=== PATIENT | female | born 1990 | race Caucasian/White ===

== ENCOUNTER 2024-03-17 17:42 | Inpatient (IN) | payer SELFPAY ==
[~2024-03-17] VITALS: Ht 170.2 cm; Wt 44.9 kg
[2024-03-17 17:42] VITALS: BP_SYST 123; PULSE 76; RESP 18; TEMP 97.5; O2SAT 98
[~2024-03-17 17:42] MED LIST: ETOMIDATE 20 MG/ 10 ML VIAL (AMIDATE) ONE; SUCCINYLCHOLINE CHLORIDE 20 MG/ML(QUELICIN) ONE
[2024-03-17 18:14] LABS: BASOPHILS % (AUTO) 0.1 % (0.0-2.0); EOSINOPHILS # (AUTO) 0.1 K/uL (0.0-0.4); EOSINOPHILS % (AUTO) 1.6 % (0.0-4.0); HEMATOCRIT 38.3 % (36-48); HEMOGLOBIN 13.1 g/dL (12.0-16.0); LYMPHOCYTES # (AUTO) 2.2 K/uL (1.0-5.5); MEAN CORPUSCULAR HEMOGLOBIN 29 pg (27-31); MEAN CORPUSCULAR HGB CONC 34 % (32-36); MEAN CORPUSCULAR VOLUME 84 fL (79.0-98.0); MONOCYTES # (AUTO) 0.5 K/uL (0.0-1.0); MONOCYTES % (AUTO) 9.2 % (1.7-9.3); NEUTROPHILS # (AUTO) 2.8 K/uL (1.8-7.7); NEUTROPHILS % (AUTO) 50.1 % (40.0-70.0); PLATELET COUNT (AUTO) 343 K/uL (130-430); RED BLOOD CELL COUNT(AUTO) 4.58 MIL/uL (4.2-6.2); RED CELL DISTRIBUTION WIDTH 13.7 % (9.0-15.0); WHITE BLOOD COUNT (AUTO) 5.6 K/uL (4.8-10.8)
[2024-03-17] MEDS: MORPHINE 4 MG INJ. 4 MG/ML VIAL IVP ONE (18:27)
[2024-03-17] MEDS: DIPHENHYDRAMINE INJ 50 MG/ML VIAL IVP ONE (18:27)
[2024-03-17 18:28] LABS: INR 1.1 (0.8-1.2)
[2024-03-17 18:35] LABS: ALBUMIN 3.7 g/dL (3.4-4.8); BILIRUBIN,DIRECT 0.1 mg/dL (0.0-0.3); CREATININE 0.86 mg/dL (0.55-1.30); POTASSIUM 3.9 mmol/L (3.5-5.1); TOTAL BILIRUBIN 0.6 mg/dL (0.0-1.0); TOTAL PROTEIN, SERUM 7.6 g/dL (6.4-8.3)
[2024-03-17 18:46] LABS: FIBRINOGEN 280 mg/dL (200-400)
[2024-03-17] MEDS ORDERED: [UNRECOGNIZED DRUG - OTHER] IV ONE (19:15)
[2024-03-17] MEDS: [UNRECOGNIZED DRUG - OTHER] IV ONE (19:30)
[2024-03-17] MEDS: NACL 0.9% 1,000 ML IV ONE (19:35)
[2024-03-17] MEDS: KETOROLAC TROMETHAMINE 30 MG VIAL IVP ONE (19:48)
[2024-03-17] MEDS: methylPREDNISolone SOD SUCC/PF 62.5 MG/ML VIAL IVP ONE (20:43)
[2024-03-17] MEDS ORDERED: ACETAMINOPHEN 325 MG TABLET PO PRN (20:45)
[2024-03-17] MEDS ORDERED: KETOROLAC TROMETHAMINE 15 MG VIAL IVP PRN (20:45)
[2024-03-17] MEDS: ALBUTEROL SULFATE 0.083% 2.5 MG/3 ML VIAL.NEB INH ONE (21:06)
[2024-03-17] MEDS: LORazepam 2 MG/ML VIAL IVP ONE (21:22)
[2024-03-17] MEDS: IPRATROPIUM BROM 0.5 MG/2.5 ML VIAL.NEB (ATROVENT) INH ONE (21:47)
[2024-03-17 22:00] VITALS: BP_SYST 135; PULSE 89; RESP 18; TEMP 98.5
[2024-03-17] MEDS: NACL 0.9% 1,000 ML IV SCH (22:25)
[2024-03-17] MEDS: ONDANSETRON HCL 4 MG/2 ML VIAL IVP PRN (23:21)
[2024-03-17] MEDS: MORPHINE 4 MG INJ. 4 MG/ML VIAL IVP PRN (23:22)
[2024-03-17 23:44] VITALS: O2SAT 96
[2024-03-18] VITALS (38 sets, daily range): BP systolic 94–126; PULSE 55–120; RESP 14–28; TEMP 97–99; O2SAT 98–100
[2024-03-18 03:45] LABS: BLOOD GAS BASE EXCESS -11.8 mmol/L (-3.0-3.0); BLOOD GAS HCO3 18.2 mmol/L (21.0-27.0); BLOOD GAS PCO2 59.1 mmHg (35.0-45.0); BLOOD GAS PH 7.107 (7.350-7.450); BLOOD GAS PO2 302.8 mmHg (75.0-100.0)
[2024-03-18 03:46] LABS: ABG O2 SAT% ESTIMATE 99.5 % (94.0-100.0); ALLEN'S TEST POSITIVE (P)
[2024-03-18 03:56] LABS: EOSINOPHILS % (AUTO) 0.1 % (0.0-4.0); HEMATOCRIT 43.1 % (36-48); HEMOGLOBIN 13.6 g/dL (12.0-16.0); LYMPHOCYTES # (AUTO) 0.7 K/uL (1.0-5.5); LYMPHOCYTES % (AUTO) 2.6 % (20.5-51.5); MEAN CORPUSCULAR HEMOGLOBIN 28 pg (27-31); MEAN CORPUSCULAR HGB CONC 32 % (32-36); MEAN CORPUSCULAR VOLUME 88 fL (79.0-98.0); MONOCYTES # (AUTO) 0.4 K/uL (0.0-1.0); MONOCYTES % (AUTO) 1.3 % (1.7-9.3); NEUTROPHILS # (AUTO) 27.2 K/uL (1.8-7.7); PLATELET COUNT (AUTO) 355 K/uL (130-430); RED BLOOD CELL COUNT(AUTO) 4.89 MIL/uL (4.2-6.2); WHITE BLOOD COUNT (AUTO) 28.4 K/uL (4.8-10.8)
[2024-03-18 03:58] LABS: INR 1.1 (0.8-1.2); PROTHROMBIN TIME 11.2 SECS (9.5-12.5)
[2024-03-18 04:20] LABS: ALBUMIN 3.3 g/dL (3.4-4.8); CALCIUM 7.6 mg/dL (8.4-11.0); CREATININE 1.31 mg/dL (0.55-1.30); TOTAL BILIRUBIN 0.5 mg/dL (0.0-1.0); TOTAL PROTEIN, SERUM 7.3 g/dL (6.4-8.3)
[2024-03-18] MEDS ORDERED: DEXTROSE 50% JECT 50 ML DISP.SYRIN IVP PRN (04:30)
[2024-03-18 04:46] LABS: FREE T4 (FREE THYROXINE) 0.9 ng/dl (0.8-1.5); THYROID STIMULATING HORMONE 2.87 uIu/mL (0.36-3.74)
[2024-03-18 05:43] LABS: BLOOD GAS HCO3 16.1 mmol/L (21.0-27.0); BLOOD GAS PCO2 40.6 mmHg (35.0-45.0); BLOOD GAS PH 7.216 (7.350-7.450); BLOOD GAS PO2 93.4 mmHg (75.0-100.0)
[2024-03-18 05:44] LABS: ABG O2 SAT% ESTIMATE 95.7 % (94.0-100.0); BLOOD GAS BASE EXCESS -11.1 mmol/L (-3.0-3.0)
[2024-03-18] MEDS ORDERED: COMMUNICATION ORDER XX SCH (06:15)
[2024-03-18] MEDS: SODIUM BICARBONATE 8.4% JECT 50 MEQ/50 ML SYRINGE IVP ONE (06:34)
[2024-03-18] MEDS: NS 1000 ML IV.SOLN IV ONE (06:34)
[2024-03-18] MEDS: PANTOPRAZOLE SODIUM 40 MG/VIAL (PROTONIX) IVP ONE (06:34)
[2024-03-18] MEDS: D5LR 1,000 ML IV SCH (06:35)
[2024-03-18 07:10] LABS: BILIRUBIN,URINE NEGATIVE (NEGATIVE); BLOOD, URINE 2+ (NEGATIVE); CLARITY/URINE SL CLOUDY (CLEAR); COLOR,URINE YELLOW (YELLOW); GLUCOSE,URINE 3+ (NEGATIVE); KETONES,URINE TRACE (NEGATIVE); LEUKOCYTE ESTERASE ,URINE NEGATIVE (NEGATIVE); NITRITE, URINE NEGATIVE (NEGATIVE); PROTEIN URINE 2+ (NEGATIVE)
[2024-03-18 07:23] LABS: HCG,QUAL RESULT NEGATIVE (NEGATIVE)
[2024-03-18 07:28] LABS: BACTERIA,URINE MANY /HPF (None Seen); WBC,URINE 0-3 /HPF (0-3)
[2024-03-18 07:36] LABS: BARBITURATE, URINE NEGATIVE (NEG <=200); BENZODIAZEPINE, URINE NEGATIVE (NEG <=150); CANNABINOID, URINE NEGATIVE (NEG <=50); COCAINE, URINE NEGATIVE (NEG <=150); METHAMPHETAMINES SCREEN,URINE NEGATIVE (NEG <=500); OPIATE, URINE POSITIVE (NEG <=100); PHENCYCLIDINE SCREEN,URINE NEGATIVE (NEG <=25); UR TRICYCLIC ANTIDEPRESSANTS NEGATIVE (NEG <=300); URINE AMPHETAMINE NEGATIVE (NEG <=500); URINE METHADONE NEGATIVE (NEG <=200); URINE OXYCODONE SCREEN NEGATIVE (NEG <=100)
[2024-03-18 07:41] LABS: ACETONE, SERUM NEGATIVE (NEGATIVE)
[2024-03-18 08:01] LABS: ABG O2 SAT% ESTIMATE 99.1 % (94.0-100.0); BLOOD GAS BASE EXCESS -3.5 mmol/L (-3.0-3.0); BLOOD GAS HCO3 20.1 mmol/L (21.0-27.0); BLOOD GAS PCO2 32.6 mmHg (35.0-45.0); BLOOD GAS PH 7.408 (7.350-7.450)
[2024-03-18 08:08] LABS: ALLEN'S TEST POSITIVE (P)
[2024-03-18] MEDS: PIPERACILLIN/TAZO 3.375 GM in D5W 50 ML IV SCH (09:39)
[2024-03-18] MEDS: THIAMINE HCL 100 MG TABLET PO SCH (09:39)
[2024-03-18] MEDS: INSULIN REGULAR, HUMAN 100 UNITS/ML, 3 ML VIAL (humuLIN R) SUBCUT PRN (11:43)
[2024-03-18] MEDS: methylPREDNISolone SOD SUCC/PF 62.5 MG/ML VIAL IVP SCH (11:45)
[2024-03-18] MEDS: PROPOFOL DRIP 100 ML IV PRN (13:06)
[2024-03-18 13:39] LABS: INR 1.1 (0.8-1.2); PROTHROMBIN TIME 11.7 SECS (9.5-12.5)
[2024-03-18 16:40] LABS: ALBUMIN 2.9 g/dL (3.4-4.8); CREATININE 0.88 mg/dL (0.55-1.30); POTASSIUM 3.6 mmol/L (3.5-5.1); TOTAL BILIRUBIN 0.5 mg/dL (0.0-1.0); TOTAL PROTEIN, SERUM 6.3 g/dL (6.4-8.3)
[2024-03-18] MEDS: FENTANYL CITRATE-0.9 % NACL/PF 100 ML IV PRN (18:23)
[2024-03-18] MEDS: ENOXAPARIN SODIUM 40 MG/0.4 ML SYRINGE SUBCUT SCH (21:00)
[2024-03-19] VITALS (47 sets, daily range): BP systolic 91–166; PULSE 42–99; RESP 24–30; TEMP 97.8–98.8; O2SAT 95–100
[2024-03-19 04:56] LABS: ALBUMIN 2.8 g/dL (3.4-4.8); CALCIUM 8.4 mg/dL (8.4-11.0); CREATININE 0.87 mg/dL (0.55-1.30); PHOSPHORUS 2.5 mg/dL (2.7-4.5); POTASSIUM 3.4 mmol/L (3.5-5.1); TOTAL BILIRUBIN 0.5 mg/dL (0.0-1.0); TOTAL PROTEIN, SERUM 6.3 g/dL (6.4-8.3)
[2024-03-19 05:03] LABS: HEMATOCRIT 36.9 % (36-48); HEMOGLOBIN 12.1 g/dL (12.0-16.0); LYMPHOCYTES # (AUTO) 0.7 K/uL (1.0-5.5); LYMPHOCYTES % (AUTO) 3.5 % (20.5-51.5); MEAN CORPUSCULAR HEMOGLOBIN 28 pg (27-31); MEAN CORPUSCULAR HGB CONC 33 % (32-36); MEAN CORPUSCULAR VOLUME 86 fL (79.0-98.0); MONOCYTES # (AUTO) 0.7 K/uL (0.0-1.0); MONOCYTES % (AUTO) 3.6 % (1.7-9.3); NEUTROPHILS # (AUTO) 19.1 K/uL (1.8-7.7); NEUTROPHILS % (AUTO) 92.9 % (40.0-70.0); PLATELET COUNT (AUTO) 291 K/uL (130-430); RED BLOOD CELL COUNT(AUTO) 4.29 MIL/uL (4.2-6.2); RED CELL DISTRIBUTION WIDTH 13.5 % (9.0-15.0); WHITE BLOOD COUNT (AUTO) 20.6 K/uL (4.8-10.8)
[2024-03-19] MEDS: PANTOPRAZOLE SODIUM 40 MG/VIAL (PROTONIX) IVP SCH (08:07)
[2024-03-19 10:14] LABS: BLOOD GAS HCO3 20.6 mmol/L (21.0-27.0); BLOOD GAS PCO2 22.9 mmHg (35.0-45.0); BLOOD GAS PO2 78.5 mmHg (75.0-100.0)
[2024-03-19 10:15] LABS: ABG O2 SAT% ESTIMATE 97.3 % (94.0-100.0); ALLEN'S TEST POSITIVE (P)
[2024-03-19] MEDS: K PHOS 15 MM in NS 250 ML IV ONE (17:46)
[2024-03-19] MEDS: MAGNESIUM SULFATE 50 ML IV ONE (18:23)
[2024-03-20] VITALS (44 sets, daily range): BP systolic 98–131; PULSE 35–69; RESP 14–25; TEMP 97.3–97.7; O2SAT 96–99
[2024-03-20 06:14] LABS: BASOPHILS % (AUTO) 0.1 % (0.0-2.0); HEMATOCRIT 36.8 % (36-48); HEMOGLOBIN 12.3 g/dL (12.0-16.0); LYMPHOCYTES # (AUTO) 0.8 K/uL (1.0-5.5); LYMPHOCYTES % (AUTO) 3.9 % (20.5-51.5); MEAN CORPUSCULAR HEMOGLOBIN 28 pg (27-31); MEAN CORPUSCULAR HGB CONC 33 % (32-36); MEAN CORPUSCULAR VOLUME 84 fL (79.0-98.0); MONOCYTES # (AUTO) 0.6 K/uL (0.0-1.0); MONOCYTES % (AUTO) 3.2 % (1.7-9.3); NEUTROPHILS % (AUTO) 92.8 % (40.0-70.0); PLATELET COUNT (AUTO) 291 K/uL (130-430); RED BLOOD CELL COUNT(AUTO) 4.38 MIL/uL (4.2-6.2); RED CELL DISTRIBUTION WIDTH 14.2 % (9.0-15.0); WHITE BLOOD COUNT (AUTO) 19.4 K/uL (4.8-10.8)
[2024-03-20 06:55] LABS: ALBUMIN 2.5 g/dL (3.4-4.8); CALCIUM 7.9 mg/dL (8.4-11.0); CREATININE 0.71 mg/dL (0.55-1.30); PHOSPHORUS 3.2 mg/dL (2.7-4.5); POTASSIUM 3.7 mmol/L (3.5-5.1); TOTAL BILIRUBIN 0.5 mg/dL (0.0-1.0); TOTAL PROTEIN, SERUM 5.9 g/dL (6.4-8.3)
[2024-03-20] MEDS: MIDAZOLAM HCL 5 MG/5 ML VIAL ONE (10:04)
[2024-03-20] MEDS: COMMUNICATION ORDER XX ONE (10:15)
[2024-03-20] MEDS: MIDAZOLAM HCL 5 MG/5 ML VIAL IVP ONE (10:47)
[2024-03-20] MEDS ORDERED: LORazepam 2 MG/ML VIAL IVP PRN ×2 (11:00→12:45)
[2024-03-20] MEDS: chlordiazePOXIDE HCL 25 MG CAPSULE PO SCH (15:21)
[2024-03-20] MEDS: LORazepam 2 MG/ML VIAL IVP PRN (15:30)
[2024-03-20] MEDS: MIDAZOLAM IN NACL,ISO-OSMOT/PF 100 ML IV PRN (15:41)
[2024-03-20] MEDS ORDERED: THEOPHYLLINE ANHYDROUS 200 MG CAP.ER.24H PO ONE (19:00)
[2024-03-20] MEDS: THEOPHYLLINE ANHYDROUS 300 MG TAB.SR.12H PO ONE (19:57)
[2024-03-20] MEDS ORDERED: THEOPHYLLINE ANHYDROUS 200 MG CAP.ER.24H PO SCH (21:00)
[2024-03-20] MEDS: THEOPHYLLINE ANHYDROUS 300 MG TAB.SR.12H PO SCH (21:53)
[2024-03-20] MEDS: QUEtiapine FUMARATE 25 MG TABLET PO SCH (21:54)
[2024-03-21] VITALS (44 sets, daily range): BP systolic 94–132; PULSE 35–96; RESP 14–35; TEMP 98.2–98.6; O2SAT 95–100
[2024-03-21 04:46] LABS: HEMATOCRIT 34.7 % (36-48); HEMOGLOBIN 11.5 g/dL (12.0-16.0); LYMPHOCYTES # (AUTO) 0.6 K/uL (1.0-5.5); LYMPHOCYTES % (AUTO) 3.2 % (20.5-51.5); MEAN CORPUSCULAR HEMOGLOBIN 28 pg (27-31); MEAN CORPUSCULAR HGB CONC 33 % (32-36); MEAN CORPUSCULAR VOLUME 85 fL (79.0-98.0); MONOCYTES # (AUTO) 0.6 K/uL (0.0-1.0); MONOCYTES % (AUTO) 3.4 % (1.7-9.3); NEUTROPHILS # (AUTO) 17.1 K/uL (1.8-7.7); NEUTROPHILS % (AUTO) 93.4 % (40.0-70.0); PLATELET COUNT (AUTO) 281 K/uL (130-430); RED BLOOD CELL COUNT(AUTO) 4.11 MIL/uL (4.2-6.2); RED CELL DISTRIBUTION WIDTH 13.8 % (9.0-15.0); WHITE BLOOD COUNT (AUTO) 18.3 K/uL (4.8-10.8)
[2024-03-21 05:34] LABS: ALANINE AMINOTRANSFERASE 63 U/L (12-78); ALBUMIN 2.4 g/dL (3.4-4.8); ANION GAP 8 (5-15); ASPARTATE AMINOTRANSFERASE 32 U/L (10-37); CALCIUM 7.9 mg/dL (8.4-11.0); CARBON DIOXIDE 27 mmol/L (23-29); CHLORIDE 106 mmol/L (98-107); CREATININE 0.69 mg/dL (0.55-1.30); GFR AFRICAN AMERICAN 127 mL/min (>90); GFR NON AFRICAN-AMERICAN 105 mL/min (>90); GLUCOSE 153 mg/dL (74-106); POTASSIUM 3.4 mmol/L (3.5-5.1); SODIUM SERUM 141 mmol/L (136-145); THYROID STIMULATING HORMONE 0.99 uIu/mL (0.36-3.74); TOTAL BILIRUBIN 0.4 mg/dL (0.0-1.0); TOTAL PROTEIN, SERUM 5.5 g/dL (6.4-8.3); UREA NITROGEN, BLOOD 13 mg/dL (8-21)
[2024-03-21] MEDS: LORazepam 2 MG/ML VIAL IVP PRN (11:46)
[2024-03-21] MEDS ORDERED: POTASSIUM CHLORIDE 20 MEQ/PKT PACKET NG ONE (19:15)
[2024-03-21] MEDS: NAPH,MB-DB/K PH,MBDB 250 MG TAB PO ONE (21:12)
[2024-03-21] MEDS: POTASSIUM CHLORIDE 20 MEQ/PKT PACKET PO ONE (21:12)
[2024-03-21] MEDS: NAPH,MB-DB/K PH,MBDB 250 MG TAB PO SCH (21:13)
[2024-03-21] MEDS: methylPREDNISolone SOD SUCC/PF 62.5 MG/ML VIAL IVP SCH (21:18)
[2024-03-21] MEDS: DEXMEDETOMIDINE HCL 200 MCG/2 ML VIAL IV ONE (21:46)
[2024-03-22] VITALS (32 sets, daily range): BP systolic 95–140; PULSE 36–101; RESP 16–29; TEMP 97.1–98.4; O2SAT 93–100
[2024-03-22 04:59] LABS: BASOPHILS % (AUTO) 0.1 % (0.0-2.0); HEMATOCRIT 37.8 % (36-48); HEMOGLOBIN 12.4 g/dL (12.0-16.0); LYMPHOCYTES # (AUTO) 0.5 K/uL (1.0-5.5); LYMPHOCYTES % (AUTO) 3.7 % (20.5-51.5); MEAN CORPUSCULAR HEMOGLOBIN 28 pg (27-31); MEAN CORPUSCULAR HGB CONC 33 % (32-36); MEAN CORPUSCULAR VOLUME 85 fL (79.0-98.0); MONOCYTES # (AUTO) 0.3 K/uL (0.0-1.0); MONOCYTES % (AUTO) 2.3 % (1.7-9.3); NEUTROPHILS # (AUTO) 12.3 K/uL (1.8-7.7); NEUTROPHILS % (AUTO) 93.9 % (40.0-70.0); PLATELET COUNT (AUTO) 280 K/uL (130-430); RED BLOOD CELL COUNT(AUTO) 4.46 MIL/uL (4.2-6.2); RED CELL DISTRIBUTION WIDTH 13.6 % (9.0-15.0); WHITE BLOOD COUNT (AUTO) 13.1 K/uL (4.8-10.8)
[2024-03-22 05:57] LABS: ALBUMIN 2.4 g/dL (3.4-4.8); CALCIUM 7.8 mg/dL (8.4-11.0); CREATININE 0.66 mg/dL (0.55-1.30); POTASSIUM 3.8 mmol/L (3.5-5.1); TOTAL BILIRUBIN 0.4 mg/dL (0.0-1.0); TOTAL PROTEIN, SERUM 5.7 g/dL (6.4-8.3)
[2024-03-22 16:55] LABS: ABG O2 SAT% ESTIMATE 97.3 % (94.0-100.0); ALLEN'S TEST POSITIVE (P); BLOOD GAS BASE EXCESS 2.9 mmol/L (-3.0-3.0); BLOOD GAS HCO3 25.3 mmol/L (21.0-27.0); BLOOD GAS PH 7.516 (7.350-7.450); BLOOD GAS PO2 84.8 mmHg (75.0-100.0)
[2024-03-22] MEDS: IPRATROPIUM/ALBUTEROL SULFATE 3 ML AMPUL.NEB (DUONEB) INH SCH (19:58)
[2024-03-22] MEDS: chlordiazePOXIDE HCL 10 MG CAPSULE PO SCH (20:29)
[2024-03-23] VITALS (30 sets, daily range): BP systolic 106–133; PULSE 47–113; RESP 17–32; TEMP 97.8–98.7; O2SAT 93–100
[2024-03-23 05:30] LABS: HEMATOCRIT 33.5 % (36-48); HEMOGLOBIN 11.3 g/dL (12.0-16.0); LYMPHOCYTES # (AUTO) 0.4 K/uL (1.0-5.5); LYMPHOCYTES % (AUTO) 2.4 % (20.5-51.5); MEAN CORPUSCULAR HEMOGLOBIN 28 pg (27-31); MEAN CORPUSCULAR HGB CONC 34 % (32-36); MEAN CORPUSCULAR VOLUME 84 fL (79.0-98.0); MONOCYTES # (AUTO) 0.9 K/uL (0.0-1.0); MONOCYTES % (AUTO) 4.9 % (1.7-9.3); NEUTROPHILS # (AUTO) 16.7 K/uL (1.8-7.7); NEUTROPHILS % (AUTO) 92.7 % (40.0-70.0); PLATELET COUNT (AUTO) 274 K/uL (130-430); RED BLOOD CELL COUNT(AUTO) 3.98 MIL/uL (4.2-6.2); RED CELL DISTRIBUTION WIDTH 13.5 % (9.0-15.0); WHITE BLOOD COUNT (AUTO) 18.1 K/uL (4.8-10.8)
[2024-03-23 06:01] LABS: ALBUMIN 2.1 g/dL (3.4-4.8); CALCIUM 7.8 mg/dL (8.4-11.0); CREATININE 0.72 mg/dL (0.55-1.30); PHOSPHORUS 3.2 mg/dL (2.7-4.5); POTASSIUM 3.2 mmol/L (3.5-5.1); TOTAL BILIRUBIN 0.4 mg/dL (0.0-1.0); TOTAL PROTEIN, SERUM 5.1 g/dL (6.4-8.3)
[2024-03-23] MEDS: POTASSIUM CHLORIDE 20 MEQ TABLET.ER PO ONE (10:02)
[2024-03-23 11:52] LABS: INR 1.1 (0.8-1.2); PROTHROMBIN TIME 11.3 SECS (9.5-12.5)
[2024-03-24] VITALS (18 sets, daily range): BP systolic 110–146; PULSE 54–89; RESP 15–31; TEMP 96.5–99; O2SAT 92–100
[2024-03-24] MEDS ORDERED: POTASSIUM CHLORIDE 20 MEQ TABLET.ER PO ONE (09:45)
[2024-03-24 10:27] LABS: BASOPHILS % (AUTO) 0.1 % (0.0-2.0); HEMATOCRIT 35.8 % (36-48); HEMOGLOBIN 11.8 g/dL (12.0-16.0); LYMPHOCYTES # (AUTO) 0.4 K/uL (1.0-5.5); MEAN CORPUSCULAR HEMOGLOBIN 28 pg (27-31); MEAN CORPUSCULAR HGB CONC 33 % (32-36); MEAN CORPUSCULAR VOLUME 85 fL (79.0-98.0); MONOCYTES # (AUTO) 0.4 K/uL (0.0-1.0); MONOCYTES % (AUTO) 2.3 % (1.7-9.3); NEUTROPHILS # (AUTO) 17.7 K/uL (1.8-7.7); NEUTROPHILS % (AUTO) 95.6 % (40.0-70.0); PLATELET COUNT (AUTO) 293 K/uL (130-430); RED BLOOD CELL COUNT(AUTO) 4.21 MIL/uL (4.2-6.2); RED CELL DISTRIBUTION WIDTH 13.6 % (9.0-15.0); WHITE BLOOD COUNT (AUTO) 18.5 K/uL (4.8-10.8)
[2024-03-24 10:47] LABS: ALBUMIN 2.5 g/dL (3.4-4.8); CALCIUM 8.1 mg/dL (8.4-11.0); CREATININE 0.89 mg/dL (0.55-1.30); POTASSIUM 3.6 mmol/L (3.5-5.1); TOTAL BILIRUBIN 0.3 mg/dL (0.0-1.0); TOTAL PROTEIN, SERUM 5.8 g/dL (6.4-8.3)
[2024-03-24] MEDS: FUROSEMIDE 20 MG/2 ML VIAL IVP ONE (13:50)
[2024-03-25] VITALS (11 sets, daily range): BP systolic 114–137; PULSE 53–92; RESP 17–26; TEMP 96.5–98; O2SAT 93–99
[2024-03-25] MEDS: PIPERACILLIN/TAZOBACTAM 3.375 GM/VIAL (ZOSYN) IV ONE (01:07)
[2024-03-25 06:10] LABS: BASOPHILS % (AUTO) 0.1 % (0.0-2.0); EOSINOPHILS % (AUTO) 0.1 % (0.0-4.0); HEMATOCRIT 33.2 % (36-48); HEMOGLOBIN 10.9 g/dL (12.0-16.0); LYMPHOCYTES # (AUTO) 1.5 K/uL (1.0-5.5); LYMPHOCYTES % (AUTO) 11.7 % (20.5-51.5); MEAN CORPUSCULAR HEMOGLOBIN 28 pg (27-31); MEAN CORPUSCULAR HGB CONC 33 % (32-36); MEAN CORPUSCULAR VOLUME 85 fL (79.0-98.0); MONOCYTES # (AUTO) 1.2 K/uL (0.0-1.0); MONOCYTES % (AUTO) 8.7 % (1.7-9.3); NEUTROPHILS # (AUTO) 10.5 K/uL (1.8-7.7); NEUTROPHILS % (AUTO) 79.4 % (40.0-70.0); PLATELET COUNT (AUTO) 284 K/uL (130-430); RED BLOOD CELL COUNT(AUTO) 3.92 MIL/uL (4.2-6.2); RED CELL DISTRIBUTION WIDTH 13.6 % (9.0-15.0); WHITE BLOOD COUNT (AUTO) 13.3 K/uL (4.8-10.8)
[2024-03-25 06:54] LABS: CALCIUM 7.9 mg/dL (8.4-11.0); CREATININE 0.81 mg/dL (0.55-1.30); POTASSIUM 3.5 mmol/L (3.5-5.1)
[2024-03-25 07:45] LABS: BILIRUBIN,URINE NEGATIVE (NEGATIVE); BLOOD, URINE 1+ (NEGATIVE); CLARITY/URINE CLEAR (CLEAR); COLOR,URINE YELLOW (YELLOW); GLUCOSE,URINE NEGATIVE (NEGATIVE); KETONES,URINE NEGATIVE (NEGATIVE); LEUKOCYTE ESTERASE ,URINE NEGATIVE (NEGATIVE); NITRITE, URINE NEGATIVE (NEGATIVE); PROTEIN URINE NEGATIVE (NEGATIVE); UROBILINOGEN,URINE 0.2 (0.2-1.0)
[2024-03-25 07:52] LABS: BACTERIA,URINE None Seen /HPF (None Seen); WBC,URINE 0-3 /HPF (0-3)
[2024-03-25] MEDS: predniSONE 20 MG TABLET PO SCH (08:49)
[2024-03-25] MEDS ORDERED: POTASSIUM CHLORIDE 20 MEQ TABLET.ER PO SCH (09:00)
[2024-03-26] VITALS (9 sets, daily range): BP systolic 100–117; PULSE 59–83; RESP 16–18; TEMP 97.6–99; O2SAT 96–100
[2024-03-26] MEDS: predniSONE 20 MG TABLET PO SCH (08:36)
[2024-03-26] MEDS ORDERED: ALBMDI INH (17:32)
[2024-03-26] MEDS ORDERED: MULT-1117 PO (17:33)
[2024-03-26] MEDS ORDERED: MULTIVITS,CA,MINERALS/IRON/FA 1 TABLET PO ONE (18:45)
[2024-03-26] MEDS: chlordiazePOXIDE HCL 10 MG CAPSULE PO SCH (20:04)
[2024-03-27] VITALS (7 sets, daily range): BP systolic 92–112; PULSE 89–116; RESP 16–18; TEMP 96.3–98.2; O2SAT 96–99
[2024-03-27 07:59] LABS: ALBUMIN 2.6 g/dL (3.4-4.8); CALCIUM 8.5 mg/dL (8.4-11.0); CREATININE 0.77 mg/dL (0.55-1.30); POTASSIUM 3.7 mmol/L (3.5-5.1); TOTAL BILIRUBIN 0.4 mg/dL (0.0-1.0); TOTAL PROTEIN, SERUM 6.2 g/dL (6.4-8.3)
[2024-03-27 08:36] LABS: BASOPHILS % (AUTO) 0.2 % (0.0-2.0); EOSINOPHILS # (AUTO) 0.1 K/uL (0.0-0.4); EOSINOPHILS % (AUTO) 0.9 % (0.0-4.0); HEMATOCRIT 39.3 % (36-48); HEMOGLOBIN 13.4 g/dL (12.0-16.0); LYMPHOCYTES # (AUTO) 2.4 K/uL (1.0-5.5); LYMPHOCYTES % (AUTO) 18.6 % (20.5-51.5); MEAN CORPUSCULAR HEMOGLOBIN 28 pg (27-31); MEAN CORPUSCULAR HGB CONC 34 % (32-36); MEAN CORPUSCULAR VOLUME 83 fL (79.0-98.0); MONOCYTES # (AUTO) 0.9 K/uL (0.0-1.0); MONOCYTES % (AUTO) 6.9 % (1.7-9.3); NEUTROPHILS # (AUTO) 9.3 K/uL (1.8-7.7); NEUTROPHILS % (AUTO) 73.4 % (40.0-70.0); PLATELET COUNT (AUTO) 403 K/uL (130-430); RED BLOOD CELL COUNT(AUTO) 4.73 MIL/uL (4.2-6.2); RED CELL DISTRIBUTION WIDTH 13.7 % (9.0-15.0); WHITE BLOOD COUNT (AUTO) 12.7 K/uL (4.8-10.8)
[2024-03-27] MEDS: MULTIVITS,CA,MINERALS/IRON/FA 1 TABLET PO SCH (09:18)
[2024-03-27] MEDS: predniSONE 20 MG TABLET PO SCH (09:18)
== END 2024-03-27 16:50 | disposition home or self-care (01) | DRG 917 ==
LOC: SED 17:42 → STU 20:43 → SIC 03-18 02:28 → STU 03-25 15:50 → SMU 03-25 23:23
PROVIDERS: ADMIT Internal Medicine; ATTEND Internal Medicine
PROC: 5A1955Z Respiratory Ventilation, Greater than 96 Consecutive Hours (ICD-10-PCS; principal; 2024-03-18)
PROC: 0BH17EZ Insertion of Endotracheal Airway into Trachea, Via Natural or Artificial Opening (ICD-10-PCS; 2024-03-18)
PROC: 5A12012 Performance of Cardiac Output, Single, Manual (ICD-10-PCS; 2024-03-18)
PROC: 02HV33Z Insertion of Infusion Device into Superior Vena Cava, Percutaneous Approach (ICD-10-PCS; 2024-03-19)
PROC: B548ZZA Ultrasonography of Superior Vena Cava, Guidance (ICD-10-PCS; 2024-03-19)
DX: T63.091A Toxic effect of venom of other snake, accidental (unintentional), initial encounter (principal); E43 Unspecified severe protein-calorie malnutrition; I46.9 Cardiac arrest, cause unspecified; J96.00 Acute respiratory failure, unspecified whether with hypoxia or hypercapnia; J69.0 Pneumonitis due to inhalation of food and vomit; Z68.1 Body mass index [BMI] 19.9 or less, adult; I50.9 Heart failure, unspecified; Z20.822 Contact with and (suspected) exposure to COVID-19; F17.200 Nicotine dependence, unspecified, uncomplicated; R00.1 Bradycardia, unspecified; E87.6 Hypokalemia; E83.42 Hypomagnesemia; F41.9 Anxiety disorder, unspecified; Z86.74 Personal history of sudden cardiac arrest; Z79.899 Other long term (current) drug therapy; Y92.89 Other specified places as the place of occurrence of the external cause
CPT/HCPCS: 36415; 36600; 71045; 71046; 80048; 80053; 80076; 80307; 81000; 81001; 81015; 82009; 82550; 82803; 82948; 83037; 83735; 84100; 84439; 84443; 84484; 84702; 84703; 85025; 85379; 85384; 85610; 85730; 87070; 87081; 87205; 92950; 93005; 93306; 93970; 94002; 94003; 94070; 94640; 94760; 96375; 97116-GP; 97530-GP; 99285; G0378; J0330; J1200; J1650; J1815; J1885; J1940; J2060; J2250; J2270; J2405; J2470; J2543; J2704; J2930; J3010; J3475; J3490; J7050; J7060; J7512

== ENCOUNTER 2024-04-03 14:05 | Inpatient (IN) | payer MEDICAID ==
[~2024-04-03] VITALS: Ht 139.7 cm; Wt 43.3 kg
[~2024-04-03 14:05] MED LIST changes: +ALBMDI INH; -ETOMIDATE 20 MG/ 10 ML VIAL (AMIDATE) ONE; +MULT-1117 PO; -SUCCINYLCHOLINE CHLORIDE 20 MG/ML(QUELICIN) ONE
[2024-04-03 14:12] VITALS: BP_SYST 109; PULSE 71; RESP 18; TEMP 98.4; O2SAT 95
[2024-04-03] MEDS: KETOROLAC TROMETHAMINE 30 MG VIAL IM ONE (14:47)
[2024-04-03 14:59] LABS: BASOPHILS # (AUTO) 0.1 K/uL (0.0-0.2); BASOPHILS % (AUTO) 0.9 % (0.0-2.0); EOSINOPHILS # (AUTO) 0.1 K/uL (0.0-0.4); HEMOGLOBIN 12.7 g/dL (12.0-16.0); LYMPHOCYTES # (AUTO) 1.3 K/uL (1.0-5.5); LYMPHOCYTES % (AUTO) 15.1 % (20.5-51.5); MEAN CORPUSCULAR HEMOGLOBIN 29 pg (27-31); MEAN CORPUSCULAR HGB CONC 34 % (32-36); MEAN CORPUSCULAR VOLUME 84 fL (79.0-98.0); MONOCYTES # (AUTO) 0.8 K/uL (0.0-1.0); MONOCYTES % (AUTO) 9.2 % (1.7-9.3); NEUTROPHILS # (AUTO) 6.3 K/uL (1.8-7.7); NEUTROPHILS % (AUTO) 73.8 % (40.0-70.0); PLATELET COUNT (AUTO) 287 K/uL (130-430); RED BLOOD CELL COUNT(AUTO) 4.41 MIL/uL (4.2-6.2); RED CELL DISTRIBUTION WIDTH 13.4 % (9.0-15.0); WHITE BLOOD COUNT (AUTO) 8.5 K/uL (4.8-10.8)
[2024-04-03 16:05] LABS: CALCIUM 8.9 mg/dL (8.4-11.0); CREATININE 0.73 mg/dL (0.55-1.30); POTASSIUM 4.3 mmol/L (3.5-5.1); TOTAL BILIRUBIN 0.4 mg/dL (0.0-1.0); TOTAL PROTEIN, SERUM 7.2 g/dL (6.4-8.3)
[2024-04-03] MEDS ORDERED: ACETAMINOPHEN 325 MG TABLET PO PRN (16:15)
[2024-04-03] MEDS ORDERED: ALBUTEROL SULFATE 0.083% 2.5 MG/3 ML VIAL.NEB INH PRN (16:15)
[2024-04-03] MEDS ORDERED: HYDROcodone/ACETAMIN 5-325 MG TAB (NORCO/ VICODIN) PO PRN (16:15)
[2024-04-03] MEDS ORDERED: IPRATROPIUM BROM 0.5 MG/2.5 ML VIAL.NEB (ATROVENT) INH PRN (16:15)
[2024-04-03] MEDS ORDERED: VANCOMYCIN HCL 1000 MG/VIAL IV ONE (16:23)
[2024-04-03] MEDS ORDERED: PIPERACILLIN/TAZOBACTAM 3.375 GM/VIAL (ZOSYN) IV ONE (16:24)
[2024-04-03] MEDS: PIPERACILLIN/TAZO 3.375 GM in NS 50 ML IV ONE (16:28)
[2024-04-03] MEDS: VANCOMYCIN HCL 1,000 MG in NS 250 ML IV ONE (16:49)
[2024-04-03 17:14] VITALS: BP_SYST 109; PULSE 71; O2SAT 95
[2024-04-03 17:50] VITALS: BP_SYST 109; PULSE 64; RESP 16; TEMP 97.7
[2024-04-03 17:55] VITALS: BP_SYST 109; PULSE 64; RESP 17; TEMP 97.7; O2SAT 99
[2024-04-03 17:58] VITALS: O2SAT 99
[2024-04-03 20:02] VITALS: BP_SYST 117; PULSE 80; RESP 18; TEMP 99.5; O2SAT 97
[2024-04-03] MEDS: VANCOMYCIN HCL 500 MG in NS 100 ML IV SCH (20:31)
[2024-04-03] MEDS: PIPERACILLIN/TAZO 3.375 GM in D5W 50 ML IV SCH (22:45)
[2024-04-04] VITALS (12 sets, daily range): BP systolic 82–118; PULSE 57–81; RESP 12–20; TEMP 97.7–99.4; O2SAT 96–99
[2024-04-04 08:07] LABS: BASOPHILS # (AUTO) 0.1 K/uL (0.0-0.2); BASOPHILS % (AUTO) 0.8 % (0.0-2.0); EOSINOPHILS # (AUTO) 0.2 K/uL (0.0-0.4); EOSINOPHILS % (AUTO) 1.8 % (0.0-4.0); HEMATOCRIT 34.4 % (36-48); HEMOGLOBIN 11.4 g/dL (12.0-16.0); LYMPHOCYTES % (AUTO) 10.4 % (20.5-51.5); MEAN CORPUSCULAR HEMOGLOBIN 28 pg (27-31); MEAN CORPUSCULAR HGB CONC 33 % (32-36); MEAN CORPUSCULAR VOLUME 85 fL (79.0-98.0); MONOCYTES # (AUTO) 0.8 K/uL (0.0-1.0); MONOCYTES % (AUTO) 8.2 % (1.7-9.3); NEUTROPHILS # (AUTO) 7.3 K/uL (1.8-7.7); NEUTROPHILS % (AUTO) 78.8 % (40.0-70.0); PLATELET COUNT (AUTO) 247 K/uL (130-430); RED BLOOD CELL COUNT(AUTO) 4.05 MIL/uL (4.2-6.2); RED CELL DISTRIBUTION WIDTH 13.5 % (9.0-15.0); WHITE BLOOD COUNT (AUTO) 9.3 K/uL (4.8-10.8)
[2024-04-04 08:29] LABS: ERYTHROCYTE SEDIMENTATION RATE 46 MM/HR (0-20)
[2024-04-04 08:39] LABS: CALCIUM 8.5 mg/dL (8.4-11.0); CREATININE 1.04 mg/dL (0.55-1.30); POTASSIUM 3.9 mmol/L (3.5-5.1)
[2024-04-04 08:50] LABS: HCG,QUAL RESULT NEGATIVE (NEGATIVE)
[2024-04-04 08:55] LABS: INR 0.9 (0.8-1.2); PROTHROMBIN TIME 9.8 SECS (9.5-12.5)
[2024-04-04] MEDS ORDERED: GADOBENATE DIMEGLUMINE 529 MG/ML, 5 ML VIAL IV ONE (09:19)
[2024-04-04] MEDS: NACL 0.9% 1,000 ML IV SCH (14:09)
[2024-04-04] MEDS ORDERED: MIDAZOLAM HCL 2 MG/2 ML VIAL (VERSED) ONE (16:05)
[2024-04-04] MEDS ORDERED: WATER FOR IRRIGATION,STERILE 1,000 ML IRRIG.SOLN IR ONE (16:05)
[2024-04-04] MEDS ORDERED: PIPERACILLIN/TAZOBACTAM 3.375 GM/VIAL (ZOSYN) IV ONE (16:05)
[2024-04-04] MEDS ORDERED: LR 1,000 ML IV.SOLN IV ONE (16:05)
[2024-04-04] MEDS ORDERED: KETOROLAC TROMETHAMINE 30 MG VIAL ONE (16:05)
[2024-04-04] MEDS ORDERED: ONDANSETRON HCL 4 MG/2 ML VIAL ONE (16:05)
[2024-04-04] MEDS ORDERED: METOCLOPRAMIDE HCL 10 MG/2 ML VIAL ONE (16:05)
[2024-04-04] MEDS ORDERED: LIDOCAINE/EPI 1% 1:100000 20 ML VIAL ONE (16:05)
[2024-04-04] MEDS ORDERED: fentaNYL CITRATE/PF 100 MCG/2 ML AMP ONE (16:05)
[2024-04-04] MEDS ORDERED: KETOROLAC TROMETHAMINE 30 MG VIAL IVP PRN (16:45)
[2024-04-04] MEDS ORDERED: HYDROmorphone 2 MG/ML VIAL IVP PRN (16:45)
[2024-04-04] MEDS ORDERED: ONDANSETRON HCL 4 MG/2 ML VIAL IVP PRN (16:45)
[2024-04-04] MEDS: HYDROmorphone 1 MG/ML INJ. CARTRIDGE IVP PRN (17:36)
[2024-04-04] MEDS: HYDROmorphone 1 MG/ML INJ. CARTRIDGE ONE (17:56)
[2024-04-04] MEDS: LR 1,000 ML IV SCH (18:02)
[2024-04-04] MEDS: ONDANSETRON HCL 4 MG/2 ML VIAL IVP PRN (20:06)
[2024-04-04] MEDS: MORPHINE 2 MG/ML INJ. SYRINGE IVP PRN (20:07)
[2024-04-04] MEDS: DOXYCYCLINE HYCLATE 100 MG in D5W 100 ML IV SCH (21:19)
[2024-04-04 23:14] LABS: BARBITURATE, URINE NEGATIVE (NEG <=200); BENZODIAZEPINE, URINE POSITIVE (NEG <=150); CANNABINOID, URINE NEGATIVE (NEG <=50); COCAINE, URINE NEGATIVE (NEG <=150); METHAMPHETAMINES SCREEN,URINE NEGATIVE (NEG <=500); OPIATE, URINE NEGATIVE (NEG <=100); PHENCYCLIDINE SCREEN,URINE NEGATIVE (NEG <=25); UR TRICYCLIC ANTIDEPRESSANTS NEGATIVE (NEG <=300); URINE AMPHETAMINE NEGATIVE (NEG <=500); URINE METHADONE NEGATIVE (NEG <=200); URINE OXYCODONE SCREEN NEGATIVE (NEG <=100)
[2024-04-04] MEDS: NACL 0.9% 1,000 ML IV ONE (23:48)
[2024-04-05] VITALS (7 sets, daily range): BP systolic 92–112; PULSE 61–92; RESP 14–16; TEMP 98–98.9; O2SAT 96–100
[2024-04-05] MEDS: HYDROcodone/ACETAMIN 10-325 MG TAB PO PRN (00:47)
[2024-04-05 08:21] LABS: BASOPHILS % (AUTO) 0.6 % (0.0-2.0); EOSINOPHILS # (AUTO) 0.2 K/uL (0.0-0.4); EOSINOPHILS % (AUTO) 3.4 % (0.0-4.0); HEMATOCRIT 30.5 % (36-48); LYMPHOCYTES # (AUTO) 1.5 K/uL (1.0-5.5); LYMPHOCYTES % (AUTO) 24.6 % (20.5-51.5); MEAN CORPUSCULAR HEMOGLOBIN 28 pg (27-31); MEAN CORPUSCULAR HGB CONC 33 % (32-36); MEAN CORPUSCULAR VOLUME 85 fL (79.0-98.0); MONOCYTES # (AUTO) 0.6 K/uL (0.0-1.0); MONOCYTES % (AUTO) 9.7 % (1.7-9.3); NEUTROPHILS # (AUTO) 3.8 K/uL (1.8-7.7); NEUTROPHILS % (AUTO) 61.7 % (40.0-70.0); PLATELET COUNT (AUTO) 206 K/uL (130-430); RED BLOOD CELL COUNT(AUTO) 3.58 MIL/uL (4.2-6.2); RED CELL DISTRIBUTION WIDTH 13.6 % (9.0-15.0); WHITE BLOOD COUNT (AUTO) 6.2 K/uL (4.8-10.8)
[2024-04-05 09:14] LABS: CALCIUM 7.8 mg/dL (8.4-11.0); CREATININE 0.85 mg/dL (0.55-1.30); POTASSIUM 4.4 mmol/L (3.5-5.1)
[2024-04-06 00:28] VITALS: BP_SYST 105; PULSE 86; RESP 16; TEMP 97.8; O2SAT 98
[2024-04-06 06:46] LABS: BASOPHILS % (AUTO) 0.9 % (0.0-2.0); EOSINOPHILS # (AUTO) 0.2 K/uL (0.0-0.4); HEMATOCRIT 31.6 % (36-48); HEMOGLOBIN 10.4 g/dL (12.0-16.0); LYMPHOCYTES # (AUTO) 1.6 K/uL (1.0-5.5); LYMPHOCYTES % (AUTO) 29.7 % (20.5-51.5); MEAN CORPUSCULAR HEMOGLOBIN 28 pg (27-31); MEAN CORPUSCULAR HGB CONC 33 % (32-36); MEAN CORPUSCULAR VOLUME 85 fL (79.0-98.0); MONOCYTES # (AUTO) 0.5 K/uL (0.0-1.0); MONOCYTES % (AUTO) 9.6 % (1.7-9.3); NEUTROPHILS % (AUTO) 56.8 % (40.0-70.0); PLATELET COUNT (AUTO) 205 K/uL (130-430); RED BLOOD CELL COUNT(AUTO) 3.74 MIL/uL (4.2-6.2); RED CELL DISTRIBUTION WIDTH 13.5 % (9.0-15.0); WHITE BLOOD COUNT (AUTO) 5.3 K/uL (4.8-10.8)
[2024-04-06 07:05] LABS: CALCIUM 8.5 mg/dL (8.4-11.0); CREATININE 0.81 mg/dL (0.55-1.30); POTASSIUM 3.9 mmol/L (3.5-5.1)
[2024-04-06 07:45] LABS: ERYTHROCYTE SEDIMENTATION RATE 49 MM/HR (0-20)
[2024-04-06 08:15] VITALS: BP_SYST 96; PULSE 87; RESP 21; TEMP 98.4; O2SAT 97
[2024-04-06 11:28] VITALS: BP_SYST 98; PULSE 77; RESP 14; TEMP 98.4; O2SAT 100
[2024-04-06] MEDS: KETOROLAC TROMETHAMINE 30 MG VIAL IVP ONE (12:21)
[2024-04-06 18:05] VITALS: BP_SYST 97; PULSE 82; RESP 16; TEMP 98; O2SAT 96
[2024-04-06 20:35] VITALS: BP_SYST 92; PULSE 71; RESP 20; TEMP 98.6; O2SAT 98
[2024-04-06] MEDS: CIPROFLOXACIN LACT 400 MG/D5W 200 ML IV SCH (21:40)
[2024-04-06] MEDS: ZOLPIDEM TARTRATE 5 MG TABLET PO PRN (22:02)
[2024-04-07] VITALS (7 sets, daily range): BP systolic 100–105; PULSE 69–87; RESP 16–19; TEMP 97.6–98.4; O2SAT 94–100
[2024-04-07 08:49] LABS: EOSINOPHILS # (AUTO) 0.2 K/uL (0.0-0.4); HEMOGLOBIN 11.2 g/dL (12.0-16.0); MEAN CORPUSCULAR HGB CONC 34 % (32-36); MEAN CORPUSCULAR VOLUME 84 fL (79.0-98.0); WHITE BLOOD COUNT (AUTO) 5.7 K/uL (4.8-10.8)
[2024-04-07 08:53] LABS: BASOPHILS % (AUTO) 0.6 % (0.0-2.0); EOSINOPHILS % (AUTO) 3.4 % (0.0-4.0); HEMATOCRIT 33.3 % (36-48); LYMPHOCYTES # (AUTO) 1.4 K/uL (1.0-5.5); LYMPHOCYTES % (AUTO) 24.2 % (20.5-51.5); MEAN CORPUSCULAR HEMOGLOBIN 28 pg (27-31); MONOCYTES # (AUTO) 0.5 K/uL (0.0-1.0); MONOCYTES % (AUTO) 9.1 % (1.7-9.3); NEUTROPHILS # (AUTO) 3.5 K/uL (1.8-7.7); NEUTROPHILS % (AUTO) 62.7 % (40.0-70.0); PLATELET COUNT (AUTO) 242 K/uL (130-430); RED BLOOD CELL COUNT(AUTO) 3.98 MIL/uL (4.2-6.2); RED CELL DISTRIBUTION WIDTH 13.4 % (9.0-15.0)
[2024-04-07 09:01] LABS: CALCIUM 8.7 mg/dL (8.4-11.0); CREATININE 0.85 mg/dL (0.55-1.30); POTASSIUM 3.9 mmol/L (3.5-5.1)
[2024-04-07 09:17] LABS: ERYTHROCYTE SEDIMENTATION RATE 53 MM/HR (0-20)
[2024-04-08] VITALS: BP_SYST 97; PULSE 87; RESP 18; TEMP 98.9; O2SAT 100
[2024-04-08 08:00] VITALS: BP_SYST 109; PULSE 68; RESP 16; TEMP 97.6; O2SAT 100
[2024-04-08] MEDS ORDERED: DOXY100T2 PO (09:08)
[2024-04-08] MEDS ORDERED: CIPR500T5 PO ×2 (09:08→09:48)
[2024-04-08] MEDS: KETOROLAC TROMETHAMINE 30 MG VIAL IVP ONE (09:30)
[2024-04-08] MEDS ORDERED: DOXY100C5 PO (09:48)
[2024-04-08 12:43] VITALS: BP_SYST 103; PULSE 78; RESP 16; TEMP 98.1; O2SAT 99
[2024-04-08 13:05] VITALS: BP_SYST 103; PULSE 78; RESP 16; TEMP 98.1; O2SAT 97
== END 2024-04-08 13:55 | disposition home or self-care (01) | DRG 513 ==
LOC: SED 14:05 → SMU 16:02
PROVIDERS: ADMIT Internal Medicine; ATTEND Internal Medicine
PROC: 0LB70ZZ Excision of Right Hand Tendon, Open Approach (ICD-10-PCS; principal; 2024-04-04 16:11)
DX: M65.841 Other synovitis and tenosynovitis, right hand (principal); M86.8X4 Other osteomyelitis, hand; L03.011 Cellulitis of right finger; W59.11XA Bitten by nonvenomous snake, initial encounter; Y93.89 Activity, other specified; Y92.89 Other specified places as the place of occurrence of the external cause; Y99.8 Other external cause status; Z79.899 Other long term (current) drug therapy; Z88.8 Allergy status to other drugs, medicaments and biological substances
CPT/HCPCS: 36415; 73140; 73220; 80048; 80053; 80202; 80307; 84703; 85025; 85610; 85651; 85730; 86886; 86900; 86901; 87070; 87075; 87081; 87186; 88302; 88305; 94070; 94760; 96365; 99285; A9577; C1713; J0744; J1170; J1885; J2270; J2405; J2543; J2765; J3010; J3370; J3465; J3490; J7060; J7120